=== PATIENT | male | born 1950 | race Caucasian/White ===

== ENCOUNTER 2022-03-05 21:07 | Inpatient (IN) | payer OTHER ==
[2022-03-05] MEDS ORDERED: ACETAMINOPHEN 1000 MG/100 ML BAG IVPB ONE (21:15)
[2022-03-05] MEDS ORDERED: ACETAMINOPHEN INJECTION 100 ML IVPB ONE (21:20)
[2022-03-05] MEDS ORDERED: SODIUM CHLORIDE 0.9% 500 ML INFUS.BAG IV ONE ×2 (21:25→22:44)
[2022-03-05 22:06] LABS: VENOUS BASE EXCESS -4.9 mmol/L (-2-2); VENOUS O2 SATURATION 99.5 % (70-80); VENOUS PCO2 19.2 mmHg (38-52); VENOUS PH 7.52 (7.310-7.410)
[2022-03-05 22:07] LABS: HEMATOCRIT 42.6 % (35.4-49); HEMOGLOBIN 14.5 GM/dL (11.7-16.9); MCH 30.8 pg (25.7-33.7); MEAN CELL VOLUME 90.5 fl (80-96); MEAN PLT VOLUME 8.7 fl (7.5-11.1); PLATELET COUNT 145 10^3/uL (134-434); RBC 4.71 M/mm3 (4.00-5.60); RDW 13.1 % (11.9-15.9); WHITE BLOOD COUNT 8.9 K/mm3 (4.0-10.0)
[2022-03-05 22:16] LABS: INR 1.46 (0.83-1.09); PROTHROMBIN TIME (PATIENT) 16.8 SEC (9.7-13.0)
[2022-03-05 22:18] LABS: ACTIVATED PTT 33.4 SECONDS (25.2-36.5)
[2022-03-05 22:34] LABS: CALCIUM 8.4 mg/dL (8.5-10.1)
[2022-03-05 22:35] LABS: ALBUMIN 3.3 g/dl (3.4-5.0)
[2022-03-05 22:38] LABS: CREATININE 1.9 mg/dL (0.55-1.3)
[2022-03-05 22:40] LABS: BILIRUBIN,TOTAL 0.5 mg/dL (0.2-1); TOT PROT 6.2 g/dl (6.4-8.2)
[2022-03-05 23:00] LABS: LACTIC ACID 6.4 mmol/L (0.4-2.0)
[2022-03-05 23:31] LABS: ANISOCYTOSIS 2+; MACROCYTOSIS 0; OVALOCYTE 1+; TOXIC GRANULATION 2+
[2022-03-05 23:36] LABS: EPI CELLS 2 /uL (0-25.1); HYALINE CASTS 0 /uL (0-3.1); PH,URINE 5.5 (5.0-8.0); URINE APPEARANCE CLOUDY; URINE BACTERIA 113 /uL (0-1359); URINE BILIRUBIN NEGATIVE (NEGATIVE); URINE COLOR YELLOW; URINE GLUCOSE (UA) TRACE (NEGATIVE); URINE KETONE TRACE (NEGATIVE); URINE LEUK ESTERASE 2+ (NEGATIVE); URINE NITRITE NEGATIVE (NEGATIVE); URINE PROTEIN 1+ (NEGATIVE); URINE RBC 59 /uL (0-23.9); URINE UROBILINOGEN 0.2 mg/dL (0.2-1.0); URINE WBC 1122 /uL (0-25.8)
[2022-03-05] MEDS ORDERED: DEXAMETHASONE SOD PHOSPHATE 10 MG/1 ML VIAL IVPUSH ONE (23:41)
[2022-03-05] MEDS ORDERED: CEFTRIAXONE 1 GM in DEXTROSE 5%-WATER - 100 ML IVPB ONE (23:42)
[2022-03-05] MEDS ORDERED: DEXAMETHASONE SOD PHOSPHATE 10 MG/1 ML VIAL ONE (23:43)
[2022-03-05] MEDS ORDERED: CEFTRIAXONE 1 GM/50 ML BAG ONE (23:46)
[2022-03-06] MEDS: SODIUM CHLORIDE 1,000 ML IV SCH ×2 (03:07→18:37)
[2022-03-06 09:32] LABS: HEMATOCRIT 42.5 % (35.4-49); HEMOGLOBIN 14.5 GM/dL (11.7-16.9); MCH 30.9 pg (25.7-33.7); MCHC 34.2 g/dl (32.0-35.9); MEAN CELL VOLUME 90.5 fl (80-96); MEAN PLT VOLUME 8.9 fl (7.5-11.1); PLATELET COUNT 147 10^3/uL (134-434); RBC 4.69 M/mm3 (4.00-5.60); RDW 13.5 % (11.9-15.9); WHITE BLOOD COUNT 19.2 K/mm3 (4.0-10.0)
[2022-03-06 09:52] LABS: CALCIUM 8.2 mg/dL (8.5-10.1)
[2022-03-06 09:53] LABS: BLOOD UREA NITROGEN 23.2 mg/dL (7-18); MAGNESIUM 1.9 mg/dL (1.8-2.4)
[2022-03-06 09:55] LABS: CREATININE 1.1 mg/dL (0.55-1.3)
[2022-03-06 09:56] LABS: PHOSPHOROUS 2.7 mg/dL (2.5-4.9)
[2022-03-06 09:57] LABS: BILIRUBIN,TOTAL 0.5 mg/dL (0.2-1); CHOLESTEROL 126 mg/dL (50-200)
[2022-03-06 09:58] LABS: LDL CHOLESTEROL (ONLY SJRH) 76 mg/dL (5-100); TRIGLYCERIDES 88 mg/dL (0-150)
[2022-03-06] MEDS ORDERED: CEFTRIAXONE 1 GM in DEXTROSE 5%-WATER - 50 ML IVPB SCH (10:00)
[2022-03-06] MEDS ORDERED: PATIENT'S OWN MEDICATION (NON-FORMULARY) (Amlodipine Besylate/Benazepril [Amlodipine-Benaz PO SCH (10:00)
[2022-03-06 10:01] LABS: HDL CHOLESTEROL 39 mg/dL (40-60)
[2022-03-06] MEDS ORDERED: PANTOPRAZOLE 40 MG TABLET PO ONE (10:39)
[2022-03-06] MEDS ORDERED: amLODIPine BESYLATE 5 MG TABLET (FP) ONE (10:39)
[2022-03-06] MEDS ORDERED: LISINOPRIL 20 MG TABLET ONE (10:40)
[2022-03-06] MEDS ORDERED: PIPERACILLIN/TAZOB 3.375 GM 3.375 GM/50 ML BAG IVPB ONE (10:40)
[2022-03-06] MEDS ORDERED: HEPARIN NA (PORCINE) 5,000 UNITS/ML 1ML VIAL ONE (10:40)
[2022-03-06] MEDS: amLODIPine BESYLATE 5 MG TABLET (FP) PO SCH (10:55)
[2022-03-06] MEDS: LISINOPRIL 20 MG TABLET PO SCH (10:55)
[2022-03-06] MEDS: PANTOPRAZOLE 40 MG TABLET PO SCH (10:55)
[2022-03-06] MEDS: HEPARIN NA (PORCINE) 5,000 UNITS/ML 1ML VIAL SQ SCH ×2 (10:56→21:39)
[2022-03-06] MEDS: PIPERACILLIN/TAZOB 3.375 GM 3.375 GM in DEXTROSE 5%-WATER - 50 ML IVPB SCH ×3 (10:56→21:39)
[2022-03-06 11:22] LABS: ANISOCYTOSIS 0; MACROCYTOSIS 1+
[2022-03-06] MEDS ORDERED: DOXYCYCLINE HYCLATE 100 MG VIAL ONE (13:30)
[2022-03-06] MEDS: DOXYCYCLINE INJECTION 100 MG in DEXTROSE 5%-WATER 100 ML IVPB SCH ×2 (14:01→23:55)
[2022-03-06 18:27] VITALS: BMI 30.9
[2022-03-06] MEDS: ATORVASTATIN CA 20 MG TABLET (FP) PO SCH (21:39)
[2022-03-06] MEDS: LIDOCAINE PATCH REMOVAL MC SCH (21:44)
[2022-03-06] MEDS: LACTATED RINGERS SOLUTION 1,000 ML/1,000 ML INFUS.BAG IV SCH (21:44)
[2022-03-07] MEDS: LIDOCAINE 5% TOPICAL PATCH TP SCH ×2 (01:23→09:42)
[2022-03-07] MEDS: LACTATED RINGERS SOLUTION 1,000 ML/1,000 ML INFUS.BAG IV SCH (02:30)
[2022-03-07] MEDS: PIPERACILLIN/TAZOB 3.375 GM 3.375 GM in DEXTROSE 5%-WATER - 50 ML IVPB SCH ×3 (02:30→17:28)
[2022-03-07] MEDS: SODIUM CHLORIDE 1,000 ML IV SCH (02:31)
[2022-03-07] MEDS: amLODIPine BESYLATE 5 MG TABLET (FP) PO SCH (09:41)
[2022-03-07] MEDS: PANTOPRAZOLE 40 MG TABLET PO SCH (09:41)
[2022-03-07] MEDS: LISINOPRIL 20 MG TABLET PO SCH (09:41)
[2022-03-07] MEDS: HEPARIN NA (PORCINE) 5,000 UNITS/ML 1ML VIAL SQ SCH ×2 (09:42→22:44)
[2022-03-07 12:54] LABS: HEMATOCRIT 42.8 % (35.4-49); HEMOGLOBIN 14.4 GM/dL (11.7-16.9); MCH 30.6 pg (25.7-33.7); MCHC 33.6 g/dl (32.0-35.9); MEAN CELL VOLUME 90.9 fl (80-96); MEAN PLT VOLUME 8.8 fl (7.5-11.1); PLATELET COUNT 133 10^3/uL (134-434); RDW 13.4 % (11.9-15.9); WHITE BLOOD COUNT 17.4 K/mm3 (4.0-10.0)
[2022-03-07 13:16] LABS: ALBUMIN 3.1 g/dl (3.4-5.0); CALCIUM 8.5 mg/dL (8.5-10.1); MAGNESIUM 2.2 mg/dL (1.8-2.4)
[2022-03-07 13:19] LABS: CREATININE 0.9 mg/dL (0.55-1.3); PHOSPHOROUS 1.9 mg/dL (2.5-4.9)
[2022-03-07 13:21] LABS: BILIRUBIN,TOTAL 0.5 mg/dL (0.2-1); TOT PROT 6.2 g/dl (6.4-8.2)
[2022-03-07] MEDS: ACETAMINOPHEN 325 MG TABLET (FP) PO PRN (19:16)
[2022-03-07] MEDS: NAPH,MB-DB/K PH,MBDB POWDER PACKET PO SCH (22:44)
[2022-03-07] MEDS: ATORVASTATIN CA 20 MG TABLET (FP) PO SCH (22:45)
[2022-03-07] MEDS: LIDOCAINE PATCH REMOVAL MC SCH (22:49)
[2022-03-08] MEDS: PIPERACILLIN/TAZOB 3.375 GM 3.375 GM in DEXTROSE 5%-WATER - 50 ML IVPB SCH ×2 (02:08→09:56)
[2022-03-08] MEDS: LACTATED RINGERS SOLUTION 1,000 ML/1,000 ML INFUS.BAG IV SCH (05:20)
[2022-03-08 09:12] LABS: HEMATOCRIT 42.8 % (35.4-49); HEMOGLOBIN 14.3 GM/dL (11.7-16.9); MCH 30.7 pg (25.7-33.7); MCHC 33.5 g/dl (32.0-35.9); MEAN CELL VOLUME 91.7 fl (80-96); MEAN PLT VOLUME 8.9 fl (7.5-11.1); PLATELET COUNT 138 10^3/uL (134-434); RBC 4.67 M/mm3 (4.00-5.60); RDW 13.5 % (11.9-15.9); WHITE BLOOD COUNT 9.5 K/mm3 (4.0-10.0)
[2022-03-08 09:32] LABS: BLOOD UREA NITROGEN 12.8 mg/dL (7-18); CALCIUM 8.2 mg/dL (8.5-10.1); MAGNESIUM 1.8 mg/dL (1.8-2.4)
[2022-03-08 09:35] LABS: PHOSPHOROUS 2.4 mg/dL (2.5-4.9)
[2022-03-08 09:37] LABS: BILIRUBIN,TOTAL 0.4 mg/dL (0.2-1); TOT PROT 6.1 g/dl (6.4-8.2)
[2022-03-08] MEDS: PANTOPRAZOLE 40 MG TABLET PO SCH (09:55)
[2022-03-08] MEDS: HEPARIN NA (PORCINE) 5,000 UNITS/ML 1ML VIAL SQ SCH ×2 (09:55→22:33)
[2022-03-08] MEDS: amLODIPine BESYLATE 5 MG TABLET (FP) PO SCH (09:56)
[2022-03-08] MEDS: LISINOPRIL 20 MG TABLET PO SCH (09:56)
[2022-03-08] MEDS: LIDOCAINE 5% TOPICAL PATCH TP SCH (09:56)
[2022-03-08] MEDS: NAPH,MB-DB/K PH,MBDB POWDER PACKET PO SCH ×2 (09:56→22:33)
[2022-03-08] MEDS ORDERED: POTASSIUM CHLORIDE TABS 20 MEQ TABLET.ER (FP) PO ONE (10:52)
[2022-03-08] MEDS: ACETAMINOPHEN 325 MG TABLET (FP) PO PRN (11:12)
[2022-03-08] MEDS: CEFAZOLIN SODIUM 2 GM in DEXTROSE 5%-WATER 100 ML IVPB SCH ×2 (11:12→17:04)
[2022-03-08] MEDS: INSULIN SLIDING SCALE (NOVOLOG) 1 VIAL SQ SCH ×3 (16:48→22:48)
[2022-03-08] MEDS: ATORVASTATIN CA 20 MG TABLET (FP) PO SCH (22:33)
[2022-03-08] MEDS: LIDOCAINE PATCH REMOVAL MC SCH (22:48)
[2022-03-09] MEDS: CEFAZOLIN SODIUM 2 GM in DEXTROSE 5%-WATER 100 ML IVPB SCH ×3 (02:21→18:26)
[2022-03-09] MEDS: INSULIN SLIDING SCALE (NOVOLOG) 1 VIAL SQ SCH ×5 (06:59→21:15)
[2022-03-09] MEDS: NAPH,MB-DB/K PH,MBDB POWDER PACKET PO SCH ×2 (10:34→21:14)
[2022-03-09] MEDS: LISINOPRIL 20 MG TABLET PO SCH (10:35)
[2022-03-09] MEDS: LIDOCAINE 5% TOPICAL PATCH TP SCH (10:35)
[2022-03-09] MEDS: HEPARIN NA (PORCINE) 5,000 UNITS/ML 1ML VIAL SQ SCH ×2 (10:35→21:15)
[2022-03-09] MEDS: amLODIPine BESYLATE 5 MG TABLET (FP) PO SCH (10:35)
[2022-03-09] MEDS: PANTOPRAZOLE 40 MG TABLET PO SCH (10:35)
[2022-03-09 12:19] LABS: BASO % 0.4 % (0-2.0); EOS % 0.4 % (0-4.5); HEMATOCRIT 44.3 % (35.4-49); HEMOGLOBIN 15.2 GM/dL (11.7-16.9); LYMPH % 12.5 % (8-40); MCHC 34.4 g/dl (32.0-35.9); MEAN CELL VOLUME 90.1 fl (80-96); MEAN PLT VOLUME 8.6 fl (7.5-11.1); MONO % 8.2 % (3.8-10.2); NEUT % 78.5 % (42.8-82.8); PLATELET COUNT 162 10^3/uL (134-434); RBC 4.92 M/mm3 (4.00-5.60); RDW 13.3 % (11.9-15.9); WHITE BLOOD COUNT 7.1 K/mm3 (4.0-10.0)
[2022-03-09 12:48] LABS: CALCIUM 8.7 mg/dL (8.5-10.1)
[2022-03-09 12:49] LABS: BLOOD UREA NITROGEN 15.3 mg/dL (7-18)
[2022-03-09 12:52] LABS: PHOSPHOROUS 3.6 mg/dL (2.5-4.9)
[2022-03-09] MEDS: LACTATED RINGERS SOLUTION 1,000 ML/1,000 ML INFUS.BAG IV SCH (18:17)
[2022-03-09] MEDS ORDERED: INSULIN (NOVOLOG) ASPART 100 UNITS/ML 10ML VIAL ONE (20:27)
[2022-03-09] MEDS: ACETAMINOPHEN 325 MG TABLET (FP) PO PRN (21:14)
[2022-03-09] MEDS: ATORVASTATIN CA 20 MG TABLET (FP) PO SCH (21:14)
[2022-03-09] MEDS: LIDOCAINE PATCH REMOVAL MC SCH (21:15)
[2022-03-10] MEDS: CEFAZOLIN SODIUM 2 GM in DEXTROSE 5%-WATER 100 ML IVPB SCH ×3 (01:24→17:50)
[2022-03-10] MEDS: INSULIN SLIDING SCALE (NOVOLOG) 1 VIAL SQ SCH ×4 (06:26→21:03)
[2022-03-10 08:42] LABS: HEMATOCRIT 47.4 % (35.4-49); HEMOGLOBIN 15.9 GM/dL (11.7-16.9); MCH 30.4 pg (25.7-33.7); MCHC 33.5 g/dl (32.0-35.9); MEAN CELL VOLUME 90.8 fl (80-96); MEAN PLT VOLUME 8.6 fl (7.5-11.1); PLATELET COUNT 195 10^3/uL (134-434); RBC 5.22 M/mm3 (4.00-5.60); RDW 13.5 % (11.9-15.9)
[2022-03-10 09:14] LABS: CALCIUM 8.9 mg/dL (8.5-10.1)
[2022-03-10 09:15] LABS: ALBUMIN 3.5 g/dl (3.4-5.0); BLOOD UREA NITROGEN 20.5 mg/dL (7-18); MAGNESIUM 2.1 mg/dL (1.8-2.4)
[2022-03-10 09:18] LABS: PHOSPHOROUS 3.1 mg/dL (2.5-4.9)
[2022-03-10 09:19] LABS: BILIRUBIN,TOTAL 0.4 mg/dL (0.2-1)
[2022-03-10] MEDS: PANTOPRAZOLE 40 MG TABLET PO SCH (10:09)
[2022-03-10] MEDS: LISINOPRIL 20 MG TABLET PO SCH (10:09)
[2022-03-10] MEDS: HEPARIN NA (PORCINE) 5,000 UNITS/ML 1ML VIAL SQ SCH ×2 (10:09→21:01)
[2022-03-10] MEDS: amLODIPine BESYLATE 5 MG TABLET (FP) PO SCH (10:09)
[2022-03-10] MEDS: LIDOCAINE 5% TOPICAL PATCH TP SCH (10:09)
[2022-03-10] MEDS: FAMOTIDINE 10 MG TABLET PO SCH (17:52)
[2022-03-10] MEDS: ATORVASTATIN CA 20 MG TABLET (FP) PO SCH (21:01)
[2022-03-10] MEDS: LIDOCAINE PATCH REMOVAL MC SCH (21:01)
[2022-03-11] MEDS: CEFAZOLIN SODIUM 2 GM in DEXTROSE 5%-WATER 100 ML IVPB SCH ×3 (01:59→17:38)
[2022-03-11] MEDS: INSULIN SLIDING SCALE (NOVOLOG) 1 VIAL SQ SCH ×4 (06:16→21:48)
[2022-03-11] MEDS ORDERED: INSULIN (NOVOLOG) ASPART 100 UNITS/ML 10ML VIAL ONE (06:25)
[2022-03-11 09:13] LABS: HEMATOCRIT 46.1 % (35.4-49); HEMOGLOBIN 15.5 GM/dL (11.7-16.9); MCH 30.5 pg (25.7-33.7); MCHC 33.7 g/dl (32.0-35.9); MEAN CELL VOLUME 90.5 fl (80-96); MEAN PLT VOLUME 8.5 fl (7.5-11.1); PLATELET COUNT 215 10^3/uL (134-434); RDW 13.1 % (11.9-15.9)
[2022-03-11] MEDS: amLODIPine BESYLATE 5 MG TABLET (FP) PO SCH (09:37)
[2022-03-11] MEDS: LISINOPRIL 20 MG TABLET PO SCH (09:37)
[2022-03-11] MEDS: HEPARIN NA (PORCINE) 5,000 UNITS/ML 1ML VIAL SQ SCH ×2 (09:37→21:43)
[2022-03-11] MEDS: FAMOTIDINE 10 MG TABLET PO SCH (09:37)
[2022-03-11] MEDS: PANTOPRAZOLE 40 MG TABLET PO SCH (09:37)
[2022-03-11] MEDS: LIDOCAINE 5% TOPICAL PATCH TP SCH (09:37)
[2022-03-11 09:40] LABS: ALBUMIN 3.8 g/dl (3.4-5.0); BLOOD UREA NITROGEN 22.1 mg/dL (7-18); MAGNESIUM 2.3 mg/dL (1.8-2.4)
[2022-03-11 09:43] LABS: BILIRUBIN,TOTAL 0.5 mg/dL (0.2-1); PHOSPHOROUS 2.6 mg/dL (2.5-4.9)
[2022-03-11 09:44] LABS: TOT PROT 7.1 g/dl (6.4-8.2)
[2022-03-11] MEDS ORDERED: CEFAZOLIN SODIUM 2 GM VIAL ONE (17:32)
[2022-03-11] MEDS: LIDOCAINE PATCH REMOVAL MC SCH (21:43)
[2022-03-11] MEDS: ATORVASTATIN CA 20 MG TABLET (FP) PO SCH (21:43)
[2022-03-12] MEDS: CEFAZOLIN SODIUM 2 GM in DEXTROSE 5%-WATER 100 ML IVPB SCH ×3 (01:10→17:03)
[2022-03-12] MEDS: INSULIN SLIDING SCALE (NOVOLOG) 1 VIAL SQ SCH ×3 (06:02→17:00)
[2022-03-12 08:30] LABS: HEMATOCRIT 41.9 % (35.4-49); MCH 30.1 pg (25.7-33.7); MCHC 33.5 g/dl (32.0-35.9); MEAN CELL VOLUME 89.8 fl (80-96); MEAN PLT VOLUME 8.9 fl (7.5-11.1); PLATELET COUNT 200 10^3/uL (134-434); RBC 4.66 M/mm3 (4.00-5.60); RDW 13.2 % (11.9-15.9); WHITE BLOOD COUNT 5.5 K/mm3 (4.0-10.0)
[2022-03-12 08:53] LABS: CALCIUM 8.4 mg/dL (8.5-10.1)
[2022-03-12 08:54] LABS: ALBUMIN 3.3 g/dl (3.4-5.0); BLOOD UREA NITROGEN 16.5 mg/dL (7-18); MAGNESIUM 2.3 mg/dL (1.8-2.4)
[2022-03-12 08:56] LABS: CREATININE 0.9 mg/dL (0.55-1.3); PHOSPHOROUS 2.3 mg/dL (2.5-4.9)
[2022-03-12 08:58] LABS: BILIRUBIN,TOTAL 0.7 mg/dL (0.2-1); TOT PROT 6.3 g/dl (6.4-8.2)
[2022-03-12] MEDS: FAMOTIDINE 10 MG TABLET PO SCH (10:23)
[2022-03-12] MEDS: amLODIPine BESYLATE 5 MG TABLET (FP) PO SCH (10:23)
[2022-03-12] MEDS: LIDOCAINE 5% TOPICAL PATCH TP SCH (10:23)
[2022-03-12] MEDS: HEPARIN NA (PORCINE) 5,000 UNITS/ML 1ML VIAL SQ SCH (10:24)
[2022-03-12] MEDS: PANTOPRAZOLE 40 MG TABLET PO SCH (10:24)
[2022-03-12] MEDS: LISINOPRIL 20 MG TABLET PO SCH (10:24)
[2022-03-12 14:44] VITALS: BP 149/85; PULSE 76; RESP 18; TEMP 99.3
== END 2022-03-12 20:00 | disposition home or self-care (01) | DRG 720 ==
LOC: JER 21:07 → JERBED 22:45 → J6S 03-06 17:37
PROVIDERS: ADMIT Hospitalist; ATTEND Internal Medicine
DX: A41.50 Gram-negative sepsis, unspecified (principal); U07.1 COVID-19; N17.9 Acute kidney failure, unspecified; E87.2 Acidosis; N41.0 Acute prostatitis; R65.20 Severe sepsis without septic shock; I10 Essential (primary) hypertension; E78.5 Hyperlipidemia, unspecified; N40.0 Benign prostatic hyperplasia without lower urinary tract symptoms
CPT/HCPCS: 0241U-QW; 36415; 71045-TC-FY; 74177-TC; 76775-TC; 76856-TC; 80048; 80051; 80053; 80061; 81003; 82553; 82803; 82962; 83036; 83540; 83605; 83735; 84100; 84153; 84443; 84484; 85025; 85027; 85610; 85730; 86850; 86900; 86901; 87040; 87086; 87186; 87491; 87591; 87661; 93005; 93010; 99285-25; J1100; J1644; Q9967

== ENCOUNTER 2023-08-22 08:56 | Emergency (ER) | payer OTHER ==
[2023-08-22 09:09] VITALS: RESP 18; TEMP 98.4; BMI 30.4
[2023-08-22] MEDS ORDERED: amLODIPine BESYLATE 10 MG TABLET (FP) ONE (10:52)
[2023-08-22] MEDS ORDERED: ACETAMINOPHEN INJECTION 100 ML IVPB ONE (10:53)
[2023-08-22] MEDS ORDERED: LIDOCAINE 4% PATCH TP ONE (10:53)
[2023-08-22] MEDS: LIDOCAINE 4% PATCH TP ONE (11:32)
[2023-08-22] MEDS: SODIUM CHLORIDE 500 ML IV STA (11:33)
[2023-08-22] MEDS: ACETAMINOPHEN 1000 MG/100 ML BAG IVPB ONE (11:33)
[2023-08-22] MEDS: amLODIPine BESYLATE 10 MG TABLET (FP) PO ONE (11:33)
[2023-08-22 11:40] LABS: BASO % 0.5 % (0-2.0); EOS % 0.7 % (0-4.5); HEMATOCRIT 45.1 % (35.4-49); HEMOGLOBIN 15.9 GM/dL (11.7-16.9); LYMPH % 12.9 % (8-40); MCH 32.1 pg (25.7-33.7); MCHC 35.3 g/dl (32.0-35.9); MEAN CELL VOLUME 90.8 fl (80-96); MEAN PLT VOLUME 8.5 fl (7.5-11.1); MONO % 5.7 % (3.8-10.2); NEUT % 80.2 % (42.8-82.8); PLATELET COUNT 207 10^3/uL (134-434); RBC 4.97 M/mm3 (4.00-5.60); RDW 13.3 % (11.9-15.9)
[2023-08-22 11:45] LABS: URINE APPEARANCE CLEAR; URINE BILIRUBIN NEGATIVE (NEGATIVE); URINE COLOR YELLOW; URINE GLUCOSE (UA) NEGATIVE (NEGATIVE); URINE KETONE NEGATIVE (NEGATIVE); URINE LEUK ESTERASE NEGATIVE (NEGATIVE); URINE NITRITE NEGATIVE (NEGATIVE); URINE PROTEIN NEGATIVE (NEGATIVE); URINE UROBILINOGEN 0.2 mg/dL (0.2-1.0)
[2023-08-22 11:47] LABS: INR 1.13 (0.83-1.09); PROTHROMBIN TIME (PATIENT) 13.1 SEC (9.7-13.0)
[2023-08-22 11:54] LABS: CHLORIDE 110 mmol/L (98-107); POTASSIUM 4.3 mmol/L (3.5-5.1); SODIUM 140 mmol/L (136-145)
[2023-08-22 11:56] LABS: ALBUMIN 4.1 g/dl (3.4-5.0); BLOOD UREA NITROGEN 16.1 mg/dL (7-18); CALCIUM 9.1 mg/dL (8.5-10.1); GLUCOSE,RANDOM 119 mg/dL (74-106)
[2023-08-22 11:57] LABS: ANION GAP 5 mmol/L (4-13); CO2 25 mmol/L (21-32)
[2023-08-22 12:00] LABS: CREATININE 0.9 mg/dL (0.55-1.3); SGOT/AST 29 U/L (15-37); SGPT/ALT 30 U/L (13-61)
[2023-08-22 12:01] LABS: BILIRUBIN,TOTAL 0.9 mg/dL (0.2-1)
[2023-08-22 12:02] LABS: TOT PROT 7.5 g/dl (6.4-8.2)
[2023-08-22 12:03] LABS: ALK PHOS 87 U/L (45-117)
[2023-08-22 12:24] LABS: ERYTHROCYTE SEDIMENTATION RATE 1 mm/hr (0-20)
[2023-08-22] MEDS: morphine CARPU-JECT 2 MG/1 ML DISP.SYRIN IVPUSH ONE (12:26)
[2023-08-22 15:56] VITALS: BP 150/100; PULSE 93
[2023-08-22] MEDS ORDERED: LIDOCAINE PATCH REMOVAL MC ONE (22:00)
== END 2023-08-22 16:06 | disposition home or self-care (01) ==
LOC: JER 08:56
PROC: 3E033NZ Introduction of Analgesics, Hypnotics, Sedatives into Peripheral Vein, Percutaneous Approach (ICD-10-PCS; principal; 2023-08-22)
PROC: 3E033GC Introduction of Other Therapeutic Substance into Peripheral Vein, Percutaneous Approach (ICD-10-PCS; 2023-08-22)
PROC: 3E0337Z Introduction of Electrolytic and Water Balance Substance into Peripheral Vein, Percutaneous Approach (ICD-10-PCS; 2023-08-22)
DX: M54.41 Lumbago with sciatica, right side (principal); R10.31 Right lower quadrant pain; M54.50 Low back pain, unspecified; R30.0 Dysuria; R50.9 Fever, unspecified; R61 Generalized hyperhidrosis; R10.2 Pelvic and perineal pain
CPT/HCPCS: 36415; 72131-TC; 74177-TC; 80053; 81003; 83605; 85025; 85610; 85651; 86140; 87040; 87086; 93005; 93010; 99285-25; J0131; Q9967

== ENCOUNTER 2023-09-14 04:15 | Day surgery (SDC) | payer OTHER ==
[2023-09-12 10:53] VITALS: BMI 30.4
[2023-09-14] MEDS: DEXAMETHASONE SOD PHOSPHATE 10 MG/1 ML VIAL IVPUSH ONE ×2
[2023-09-14] MEDS: IOHEXOL 180 MG/1 ML ML IJ ONE
[2023-09-14] MEDS: LIDOCAINE 1% P/F 10 MG/ML VIAL INF ONE ×3
[2023-09-14] MEDS ORDERED: DEXAMETHASONE SOD PHOSPHATE 10 MG/1 ML VIAL ONE (07:15)
[2023-09-14] MEDS ORDERED: LIDOCAINE HCL/PF 1% SDV 5ML VIAL ONE (07:15)
[2023-09-14 09:37] VITALS: BP 152/97; PULSE 60; RESP 18; TEMP 98.2
[2023-09-14] MEDS ORDERED: ACETAMINOPHEN 500 MG TABLET (FP) PO PRN (12:10)
== END 2023-09-14 09:49 | disposition home or self-care (01) ==
LOC: JASU-SURG 04:15
PROVIDERS: ATTEND Pain Medicine Pain Medicine
PROC: 3E0R3BZ Introduction of Anesthetic Agent into Spinal Canal, Percutaneous Approach (ICD-10-PCS; 2023-09-14)
PROC: 3E0R33Z Introduction of Anti-inflammatory into Spinal Canal, Percutaneous Approach (ICD-10-PCS; principal; 2023-09-14 08:45)
DX: M54.16 Radiculopathy, lumbar region (principal)
CPT/HCPCS: 76000-TC-FY; J1100

== ENCOUNTER 2023-10-19 04:43 | Day surgery (SDC) | payer OTHER ==
[2023-10-16 12:44] VITALS: BMI 30.4
[2023-10-19] MEDS ORDERED: LIDOCAINE HCL/PF 1% SDV 5ML VIAL ONE (07:11)
[2023-10-19] MEDS ORDERED: DEXAMETHASONE SOD PHOSPHATE 10 MG/1 ML VIAL ONE (07:11)
[2023-10-19] MEDS ORDERED: ACETAMINOPHEN 500 MG TABLET (FP) PO PRN (13:04)
[2023-10-19 13:38] VITALS: RESP 18
[2023-10-19] MEDS: DEXAMETHASONE SOD PHOSPHATE 10 MG/1 ML VIAL IVPUSH ONE (13:57)
[2023-10-19] MEDS: LIDOCAINE HCL 1% PRESERVATIVE FREE - 30ML VIAL IJ ONE (13:57)
[2023-10-19] MEDS: IOHEXOL 180 MG/1 ML ML IJ ONE (13:57)
[2023-10-19 14:16] VITALS: BP 136/78; PULSE 68; TEMP 97.8
== END 2023-10-19 14:53 | disposition home or self-care (01) ==
LOC: JASU-SURG 04:43
PROVIDERS: ATTEND Pain Medicine Pain Medicine
PROC: 3E0R3BZ Introduction of Anesthetic Agent into Spinal Canal, Percutaneous Approach (ICD-10-PCS; 2023-10-19)
PROC: 3E0R33Z Introduction of Anti-inflammatory into Spinal Canal, Percutaneous Approach (ICD-10-PCS; principal; 2023-10-19 14:00)
DX: M54.16 Radiculopathy, lumbar region (principal)
CPT/HCPCS: 76000-TC-FY; J1100

== ENCOUNTER 2023-11-27 20:50 | Emergency (ER) | payer OTHER ==
[2023-11-27 20:59] VITALS: TEMP 98.3; BMI 30.8
[2023-11-27] MEDS ORDERED: MAG HYDROX/AL HYDROX/SIMETH 30 ML UNIT-DOSE CUP ONE (21:50)
[2023-11-27] MEDS ORDERED: ACETAMINOPHEN INJECTION 100 ML IVPB ONE (21:50)
[2023-11-27] MEDS ORDERED: FAMOTIDINE 20 MG/50 ML IVPB 20 MG/50 ML MG IVPB ONE (21:50)
[2023-11-27] MEDS: ACETAMINOPHEN 1000 MG/100 ML BAG IVPB ONE (22:10)
[2023-11-27] MEDS: MAG HYDROX/AL HYDROX/SIMETH 30 ML UNIT-DOSE CUP PO ONE (22:10)
[2023-11-27] MEDS: FAMOTIDINE 20 MG/50 ML IVPB 20 MG/50 ML MG IVPB ONE (22:11)
[2023-11-27 22:17] LABS: BASO % 1.5 % (0-2.0); EOS % 1.3 % (0-4.5); HEMATOCRIT 43.5 % (35.4-49); HEMOGLOBIN 14.9 GM/dL (11.7-16.9); LYMPH % 13.9 % (8-40); MCH 31.2 pg (25.7-33.7); MCHC 34.3 g/dl (32.0-35.9); MEAN CELL VOLUME 91.1 fl (80-96); MEAN PLT VOLUME 8.6 fl (7.5-11.1); MONO % 7.6 % (3.8-10.2); NEUT % 75.7 % (42.8-82.8); PLATELET COUNT 172 10^3/uL (134-434); RBC 4.77 M/mm3 (4.00-5.60); RDW 13.5 % (11.9-15.9)
[2023-11-27 22:43] LABS: PH,URINE 7.5 (5.0-8.0); URINE APPEARANCE CLEAR; URINE BILIRUBIN NEGATIVE (NEGATIVE); URINE COLOR YELLOW; URINE GLUCOSE (UA) NEGATIVE (NEGATIVE); URINE KETONE NEGATIVE (NEGATIVE); URINE LEUK ESTERASE NEGATIVE (NEGATIVE); URINE NITRITE NEGATIVE (NEGATIVE); URINE PROTEIN NEGATIVE (NEGATIVE); URINE UROBILINOGEN 0.2 mg/dL (0.2-1.0)
[2023-11-27 22:43] LABS: CALCIUM 8.9 mg/dL (8.5-10.1)
[2023-11-27 22:44] LABS: ALBUMIN 3.8 g/dl (3.4-5.0); BLOOD UREA NITROGEN 17.9 mg/dL (7-18); MAGNESIUM 2.2 mg/dL (1.8-2.4)
[2023-11-27 22:47] LABS: CREATININE 0.9 mg/dL (0.55-1.3)
[2023-11-27 22:48] LABS: BILIRUBIN,TOTAL 0.4 mg/dL (0.2-1); TOT PROT 6.8 g/dl (6.4-8.2)
[2023-11-28 01:28] VITALS: BP 174/92; PULSE 58; RESP 19
== END 2023-11-28 03:00 | disposition home or self-care (01) ==
LOC: JER 20:50
PROC: 3E033GC Introduction of Other Therapeutic Substance into Peripheral Vein, Percutaneous Approach (ICD-10-PCS; principal; 2023-11-27)
PROC: 3E030NZ Introduction of Analgesics, Hypnotics, Sedatives into Peripheral Vein, Open Approach (ICD-10-PCS; 2023-11-27)
DX: R10.9 Unspecified abdominal pain (principal); I10 Essential (primary) hypertension; R51.9 Headache, unspecified; Z20.822 Contact with and (suspected) exposure to COVID-19
CPT/HCPCS: 0241U-QW; 36415; 70450-TC; 71045-TC-FY; 76705-TC; 80053; 81003; 83690; 83735; 84484; 85025; 86850; 86900; 86901; 87086; 93005; 93010; 96365; 96375; 99285-25; J0131

== ENCOUNTER 2024-02-17 09:10 | Emergency (ER) | payer OTHER ==
[2024-02-17 09:17] VITALS: BP 159/84; PULSE 78; RESP 18; TEMP 98.6; BMI 30.4
[2024-02-17] MEDS ORDERED: DEXAMETHASONE SOD PHOSPHATE 10 MG/1 ML VIAL ONE (10:13)
[2024-02-17] MEDS ORDERED: LIDOCAINE 4% PATCH TP ONE (10:13)
[2024-02-17] MEDS ORDERED: ACETAMINOPHEN 500 MG TABLET (FP) ONE (10:13)
[2024-02-17] MEDS: LIDOCAINE 5% TOPICAL PATCH TP ONE (10:20)
[2024-02-17] MEDS: ACETAMINOPHEN 500 MG TABLET (FP) PO ONE (10:20)
[2024-02-17] MEDS: DEXAMETHASONE SOD PHOSPHATE 10 MG/1 ML VIAL IM ONE (10:20)
[2024-02-17] MEDS ORDERED: LIDOCAINE PATCH REMOVAL MC ONE (22:00)
== END 2024-02-17 11:38 | disposition home or self-care (01) ==
LOC: JERFT 09:10
PROC: 3E023GC Introduction of Other Therapeutic Substance into Muscle, Percutaneous Approach (ICD-10-PCS; principal; 2024-02-17)
DX: M75.31 Calcific tendinitis of right shoulder (principal); X50.1XXA Overexertion from prolonged static or awkward postures, initial encounter
CPT/HCPCS: 73030-TC-RT-FY; 96372; 99284-25; J1100

== ENCOUNTER 2025-03-30 08:14 | Emergency (ER) | payer OTHER ==
[2025-03-30 08:25] VITALS: TEMP 98; BMI 30.1
[2025-03-30] MEDS ORDERED: KETAMINE HCL 200 MG/20 ML VIAL IVPB ONE ×2 (09:15→09:18)
[2025-03-30] MEDS ORDERED: GABAPENTIN 300 MG CAPSULE ONE (09:21)
[2025-03-30] MEDS ORDERED: ACETAMINOPHEN INJECTION 100 ML ONE (09:21)
[2025-03-30 09:24] LABS: ABSOLUTE IMMATURE GRANULOCYTES 0.02 x10^3/uL (0.0-0.031); BASOPHILS # 0.05 x10^3/uL (0.01-0.08); EOSINOPHIL % 0.7 % (0.8-7.0); EOSINOPHILS # 0.04 x10^3/uL (0.04-0.54); MCHC 33.2 g/dl (32.3-36.5); MEAN CELL VOLUME 92.4 fl (79.0-92.2); MEAN PLT VOLUME 10.0 fl (9.4-12.4); MONOCYTE # 0.40 x10^3/uL (0.30-0.82); MONOCYTE % 6.6 % (5.3-12.2); RDW 12.9 % (12.2-16.6)
[2025-03-30] MEDS: GABAPENTIN 300 MG CAPSULE PO ONE (09:34)
[2025-03-30] MEDS: ACETAMINOPHEN 1000 MG/100 ML BAG IVPB ONE (09:34)
[2025-03-30 09:41] LABS: GLUCOSE,RANDOM 101.0 mg/dL (74-106); TOT PROT 6.8 g/dl (6.4-8.2)
[2025-03-30 09:42] LABS: CO2 22.0 mmol/L (21-32)
[2025-03-30 09:44] LABS: ALK PHOS 66.0 U/L (40-150)
[2025-03-30 09:47] LABS: CREATININE 0.8 mg/dL (0.55-1.3); SGOT/AST 23.0 U/L (5-34); SGPT/ALT 20.0 U/L (0-55)
[2025-03-30 10:07] LABS: HCV DIAGNOSTIC IN-HOUSE W/RFLX NON-REACTIVE (NONREACTIVE)
[2025-03-30 10:08] LABS: HIV INTERPRETATION NEGATIVE (NEGATIVE)
[2025-03-30] MEDS: SODIUM CHLORIDE IVPB ONE (10:46)
[2025-03-30] MEDS: KETAMINE HCL IVPB ONE (10:46)
[2025-03-30] MEDS ORDERED: MIDAZOLAM HCL 2 MG/2 ML SINGLE DOSE VIAL IVPUSH ONE (10:59)
[2025-03-30 12:15] VITALS: BP 137/67; PULSE 58; RESP 16
== END 2025-03-30 12:26 | disposition home or self-care (01) ==
LOC: JER 08:14
PROC: 3E033NZ Introduction of Analgesics, Hypnotics, Sedatives into Peripheral Vein, Percutaneous Approach (ICD-10-PCS; principal; 2025-03-30)
DX: M79.2 Neuralgia and neuritis, unspecified (principal); M54.50 Low back pain, unspecified; G89.29 Other chronic pain; M79.604 Pain in right leg
CPT/HCPCS: 36415; 80053; 83735; 85025; 86803; 87389; 96374; 99284-25